=== PATIENT | female | born 1980 | race Caucasian/White ===

== ENCOUNTER 2019-12-10 13:57 | Outpatient (CLI) | payer OTHER, SELFPAY ==
--- NOTE | 2019-12-10 14:04 | MR_ITS ---
WS: [id number] MRI LEFT KNEE HISTORY: LEFT anterior KNEE PAIN COMPARISON: Radiographs 11/24/2019 Anterior cruciate ligament: Intact. Posterior cruciate ligament: Intact. Medial collateral ligament: Intact. Posterior lateral corner structures: Intact. Medial menisci: Intact. Normal signal, size and shape. Lateral meniscus: Intact. Normal signal, size and shape. Extensor mechanism: Distal quadriceps tendon and patellar tendons are intact. Fluid and soft tissue: No joint effusion. No Stanton's cyst. Osseous and articular structures: Patellofemoral compartment: Normal. Medial compartment: No significant narrowing. Very minimal fissuring of the cartilage in the medial c ompartment. No marrow edema. Lateral compartment: Normal. MR/MR knee LT wo con* [id number] IMPRESSION: 1. Very minimal fissuring of the cartilage and degenerative changes in the med ial compartment. 2. Otherwise negative.
== END 2019-12-10 13:58 | disposition home or self-care (01) ==
LOC: RADWPI 14:01
PROVIDERS: Family Provider Family Medicine; PCP Family Medicine; Visit Provider Nurse Practitioner Family
DX: M25.562 Pain in left knee (principal)
CPT/HCPCS: 73721

== ENCOUNTER 2021-11-13 07:38 | Outpatient (CLI) | payer SELFPAY ==
--- NOTE | 2021-11-13 07:48 | MM_ITS ---
WS: [id number] DIAGNOSTIC BILATERAL DIGITAL BREAST TOMOSYNTHESIS MAMMOGRAPHY WITH CAD LEFT breast ultrasound, limited HISTORY: LT BREAST LUMP COMPARISON: None available. TECHNIQUE: Bilateral craniocaudad, mediolateral oblique, and mediolateral views are submitted with to mosynthesis and SM. Spot compression LEFT CC and MLO. Computer aided detection utilized. Breast composition: The breasts are extremely dense, which lowers the sensitivity of mammography. Pal pable marker is placed in the 9:00 axis of the LEFT breast. Breast is very dense. No underlying mass or distortion identified. The RIGHT breast is negative. LEFT breast ultrasound, limited. No ultrasound abnormality noted in the LEFT breast at 9:00 at the site of the palpable marker as dir ected by the patient. Very dense fibroglandular soft tissue. No distortion or shadowing. MM/[place] [id number] IMPRESSION: BI-RADS: 2-Benign FOLLOW UP: 1 Year Follow-up LACK OF RADIOGRAPHIC EVIDENCE OF MALIGNANCY SHOULD NOT DELAY BIOPSY IF A CLINIC ALLY SUSPICIOUS MASS IS PRESENT.
== END 2021-11-13 07:39 | disposition home or self-care (01) ==
PROVIDERS: PCP Family Medicine; Visit Provider Nurse Practitioner
DX: N63.25 Unspecified lump in the left breast, overlapping quadrants (principal)
CPT/HCPCS: 76642; 77062

== ENCOUNTER 2025-02-09 14:08 | Outpatient (CLI) | payer OTHER, SELFPAY ==
--- NOTE | 2025-02-09 14:10 | MM_ITS ---
WS: [id number] BILATERAL 3D TOMOSYNTHESIS DIGITAL SCREENING MAMMOGRAM WITH CAD CLINICAL INFORMATION: SCREENING HISTORY: Screening mammogram. No current complaints. COMPARISON: 2021 TECHNIQUE: Bilateral CC and MLO. FINDINGS: The breast are composed of extremely dense tissue, which can limit the detection of small underlying mass lesions. No suspicious focal mass, asymmetry, calcifications, or architectural distortion. No evidence of malignancy. A few incidental punctate calcifications. MM/MM scr tomosynthesis [id number] IMPRESSION: DENSITY: The breasts are extremely dense, which lowers the sensitivity of mammo graphy. BI-RADS: 2 - Benign FOLLOW UP: 1 Year Follow-up Recommend return to annual screening mammography.
== END 2025-02-09 14:09 | disposition home or self-care (01) ==
LOC: RAD 14:08
PROVIDERS: PCP Family Medicine; Visit Provider Family Medicine
DX: Z12.31 Encounter for screening mammogram for malignant neoplasm of breast (principal); R92.343 Mammographic extreme density, bilateral breasts; R92.1 Mammographic calcification found on diagnostic imaging of breast
CPT/HCPCS: 77063; 77067

== ENCOUNTER → 2025-03-02 08:29 | Outpatient (BNVA) | payer OTHER, SELFPAY | PROVIDERS: PCP Family Medicine; Visit Provider Student in an Organized Health Care Education/Training Program | DX: M25.531 Pain in right wrist (principal); M67.431 Ganglion, right wrist | CPT/HCPCS: 73110 ==

== ENCOUNTER 2025-03-18 09:28 | Day surgery (SDC) | payer OTHER, SELFPAY ==
[2025-03-18] VITALS (8 sets, daily range): BP systolic 85–118; BP diastolic 51–81; PULSE 72–86; RESP 14–17; TEMP 36.2–36.8; O2SAT 97–100; BMI 21.7
[2025-03-18] MEDS: acetaminophen 1,000 MG/100 ML PIGGYBACK 400 MG IV (09:58)
--- NOTE | 2025-03-18 10:15 | W.PM.OPSUD ---
Surgery/Procedure H&P Update DATE OF PROCEDURE: March 18, 2025 DATE H&P PERFORMED: 03/02/25 H&P UPDATE INFORMATION: I have reviewed H&P completed within last 30 days, I have examined patient prior to procedure and No changes to prior documentation CHANGES TO PREVIOUS DOCUMENTATION: Please refer to preoperative anesthesia evaluation for heart and lung findings. PREOP DIAGNOSIS: Right dorsal wrist ganglion cyst PRIMARY INDICATION FOR PROCEDURE: Right dorsal wrist ganglion cyst PLANNED PROCEDURE: Operation Date: 03/18/25 11:35 Proposed Procedures p dorsal wrist ganglion cyst excision(Right) - Avni Aceves DO
--- NOTE | 2025-03-18 10:35 | ANES.PREANE2 ---
Pre-Anesthetic Assessment Height/Weight: Height 5 ft 6 in Weight 135 lb Temp Pulse Resp BP Pulse Ox O2 Del Method 98.2 F 78 16 105/81 100 Room Air 03/18/25 09:58 03/18/25 09:58 03/18/25 09:58 03/18/25 09:58 03/18/25 09:58 03/18/25 09:58 Preop Diagnosis: Right dorsal wrist ganglion cyst Operation Date: 03/18/25 11:35 Proposed Procedures p dorsal wrist ganglion cyst excision(Right) - Avni Washita, DO Was Beta Katina taken within 24 hours: Yes Was Clonidine taken within 24 hours: N/A Last intake: Intake Last Liquid Date 03/17/25 Last Liquid Time 19:00 Last Solid Date 03/17/25 Last Solid Time 19:00 Social No alcohol and No tobacco Exam alert, oriented x 3, clear to auscultation bilaterally and regular rate & rhythm Airway Submandibular: within normal limits Cervical ROM: within normal limits Mallampati: Class II Dentition: full Anesthetic Plan ASA status: 2 Anesthesia: MAC Other: No prior issues with anesthesia NPO since yesterday evening Patient takes propranolol for SVT. Took this this morning. Current HR 76 Denies any pulmonary issues METs greater than 4 Plan for MAC anesthesia with local via surgeon Medications/Allergies Home Medications ?Medication ?Instructions ?Recorded ?Confirmed ?Last Taken ?Type propranolol 20 mg tablet 10 mg PO BID 03/17/25 03/18/25 03/18/25 History Allergies Allergy/AdvReac Type Severity Reaction Status Date / Time No Known Allergies Allergy Verified 03/18/25 09:54 Current Medications Generic Name Dose Route Start Last Admin Trade Name Sesar PRN Reason Stop Dose Admin Sodium Chloride 1,000 mls @ 30 mls/hr 03/18/25 09:45 03/18/25 09:57 Sodium Chloride 0.9% IV 03/19/25 09:44 30 mls/hr .Q24H ROWENA Administration PFSH Anesthesia Social History Smoking and tobacco/nicotine status: never used tobacco/nicotine Female Reproductive History Date of last menstrual period: 02/17/25 Data Anesthesia Cardiac Studies: Holter Monitor 02/24/24
[2025-03-18] MEDS: ceFAZolin 2,000 MG in sodium chloride 0.9% (plus) 50 ML 100 MG IV (11:45)
[2025-03-18] MEDS: lidocaine-epi 1% 20 mL INJ INJECTION (12:11)
[2025-03-18] MEDS: ROPivacaine 0.5% SDV 30 mL 150 MG INJECTION (12:11)
--- NOTE | 2025-03-18 12:36 | W.PM.BPON ---
Date of Procedure: 03/18/2025 Surgeon: Avni Aceves DO Compensation And Benefits Advisor(s): None Procedure(s) performed: Right dorsal wrist ganglion cyst excision Findings of the procedure(s): Patient underwent procedure as planned without issues or complications placed in volar splint taken recovery stable condition Estimated blood loss: 5 mL Specimen(s) removed: Right dorsal wrist cyst excised and sent for specimen Post-operative diagnosis: Right dorsal wrist ganglion cyst
--- NOTE | 2025-03-18 12:37 | PM.OP ---
Operative Report Date of procedure: March 18, 2025 Surgeon: Avni Aceves DO Procedure: Preoperative diagnosis: Right dorsal wrist ganglion cyst Postoperative diagnosis Same Procedure Right?dorsal?wrist?ganglion cyst excision Specimens removed/disposition: Right?dorsal?wrist?ganglion cyst excised and sent for pathology Surgeon: Avni Aceves DO Estimated blood loss: 5mL Tourniquet time 15minutes IV fluids: 600 mL Complications: None Findings: See operative report narrative Condition: stable Disposition: same day Brief History: Patient's been worked up in the outpatient setting and findings consistent with preoperative diagnosis.? Patient has a right?dorsal?wrist?ganglion cyst.? Patient has attempted conservative treatment and this has become significantly painful.? We talked about treatment options as far as nonoperative and operative intervention.? At this point time patient like a more permanent solution in the lowest chance of recurrence and as result through shared decision making we agreed to proceed with a right?dorsal?wrist?ganglion cyst excision.? Patient understands risk benefits complication alternatives surgical nonsurgical treatment options.? Understanding risk of surgery patient agrees to proceed.? All questions answered.? Consent obtained in the preoperative holding area. Procedure: Patient seen evaluate in the preoperative holding area.? Consent was signed and reviewed with patient.? All questions were answered at that time.? Correct extremity was then marked.? Once seen evaluated by anesthesia patient was then brought back to the operative suite.? Patient was then placed in supine position all bony prominences well-padded patient was properly secured to the bed.? An armboard was then applied for the right upper extremity.? A nonsterile tourniquet was applied to the right upper extremity arm.? Patient then underwent anesthesia per the anesthesia department.? Once appropriately anesthetized the right upper extremity was then prepped and draped in standard orthopedic fashion.? Final timeout performed.? Patient received appropriate preoperative antibiotics. Under sterile aseptic technique I began with local anesthetic for my preplanned surgical site.? Then I utilized an Esmarch tourniquet to exsanguinate the right upper extremity to 250 mmHg Patient had a large soft mobile?ganglion cyst which a incision was then centered longitudinally directly over the cyst over the?dorsal?aspect of the right wrist.? sharp scalpel incision was made through skin and subcutaneous tissue.? I then switched to dissection scissors and spread longitudinally to identify branches of the superficial radial nerve.? These were protected throughout the case.? I immediately encountered the?ganglion cyst which was just distal to the extensor retinaculum and between the third and fourth?dorsal?compartments.? I then protected the tendons and identified the?ganglion cyst subsequently dissected circumferentially all the way to the base which was connected to the?dorsal?capsule.? This was then transected at the base with bipolar electrocautery.? I did have to excise some of the?dorsal?capsule that communicated with the cyst this had a broad connection and cyst stalk to the?dorsal?capsule. I utilized bipolar electrocautery to to seal off the?dorsal?capsule and prevent any further cyst recurrence.? Cyst was then sent for pathology.? After cyst was excised wrist was taken through range of motion and smooth range of motion no evidence of wrist instability. I then thoroughly irrigated the wound bed tourniquet was deflated.? Hemostasis was satisfactory with bipolar electrocautery.? I then closed the incision in layered fashion with 3-0 Vicryl suture subcutaneously and running 3-0 Monocryl suture with Dermabond and Steri-Strips.? Xeroform over the incisions 4 x 4's ABD soft roll and a volar splint was applied.? Patient was then awakened from anesthesia and taken back in stable condition. Disposition: Patient taken back in stable condition recovering well.? Patient will receive appropriate discharge instructions as well as pain medication postoperatively.? Patient placed in a volar splint.? We will follow-up with in the orthopedic office in 2 weeks.? Patient understands of any questions or concerns and contact the office.
[2025-03-18 12:59] LABS: OR HCG Qualitative Urine Negative (Negative)
--- NOTE | 2025-03-18 13:20 | ANE.PACU2 ---
Inpatient post-anesthesia follow up: Airway intact: Yes Vital signs: Temperature 97.1 F Pulse Rate 82 Respiratory Rate 16 Blood Pressure 109/72 Pulse Oximetry 98 Oxygen Delivery Me thod Room Air Oxygen Flow Rate 8 Fraction of Inspir ed Oxygen Hydration adequate: Yes Nausea and vomiting: No Pain level: 2 Mental status: Baseline
== END 2025-03-18 13:43 | disposition home or self-care (01) ==
PROVIDERS: Student in an Organized Health Care Education/Training Program; PCP Family Medicine; Visit Provider Student in an Organized Health Care Education/Training Program
PROC: (CPT 26160; principal; 2025-03-18 11:25)
DX: M67.431 Ganglion, right wrist (principal)
CPT/HCPCS: 25111; 81025; 88304; J0131; J0690; J1885; J2250; J2704; J2795; J3010; J7030; J9999